=== PATIENT | male | born 1970 | race Caucasian/White ===

== ENCOUNTER 2020-04-29 13:26 | Inpatient (IN) ==
[2020-04-29] MEDS ORDERED: Thiamine 100 MG/ML 2 ml VIAL 100 MG, Folic Acid 1 MG, Multiple Vitamin IV ADULT 10 ML i... IV ONE (13:58)
[2020-04-29] MEDS ORDERED: LORazepam 2 mg VIAL 1 ml IV PUSH ONE ×2 (14:04→15:07)
[2020-04-29] MEDS ORDERED: Lorazepam PYXIS KEY PRN ×2 (14:04→15:07)
[2020-04-29] MEDS ORDERED: Lorazepam PYXIS KEY ONE (14:31)
[2020-04-29 15:12] LABS: ABS Lymphocytes 1.7 10^3/ul (1.0-4.8); ABS Monocytes 0.8 10^3/ul (0-0.8); ABS Neutrophils 4.4 10^3/ul (1.5-7.7); Eosinophil % 0.1 %; Hematocrit 47 % (42-52); Hemoglobin 16.4 g/dL (14.0-18.0); Lymphocyte % 24.2 %; Mean Corpuscular HGB Conc 35 g/dL (31-36); Mean Corpuscular Hemoglobin 33 pg (27-31); Mean Corpuscular Volume 93 fL (80-94); Mean Platelet Volume 7.9 fL (7.4-10.4); Nucleated Red Blood Cells % 0.1; Platelet Count 158 10^3/uL (150-450); Red Blood Count 5.03 10^6 /uL (4.18-5.48); Red Cell Distribution Width 13 % (10-15); White Blood Count 6.9 10^3/uL (3.5-10.8)
[2020-04-29] MEDS ORDERED: NS 0.9% 1000 ml BAG 1,000 ML IV ONE (15:16)
[2020-04-29 16:28] LABS: Calcium 8.5 mg/dL (8.6-10.3); Magnesium 2.2 mg/dL (1.9-2.7); Potassium 3.3 mmol/L (3.5-5.0); Total Bilirubin 0.9 mg/dL (0.2-1.0)
[2020-04-29 16:34] LABS: Albumin/Globulin Ratio 1.7 (1-3); BUN/Creatinine Ratio 13.3 (8-20); EGFR African American 133.9 (>60); EGFR Non-African American 110.7 (>60); Globulin 2.3 g/dL (2-4); Total Protein 6.3 g/dL (6.4-8.9)
[2020-04-29] MEDS ORDERED: Diltiazem IV push/loading dose 5 MG/ML 5 ML vial (25 mg) IV SLOW PU ONE (16:35)
[2020-04-29] MEDS ORDERED: Ondansetron 4 mg VIAL 2 MG/ML 2 ml VIAL IV PRN (16:50)
[2020-04-29] MEDS ORDERED: Potassium Chlor 20 meq TAB.ER PO ONE (17:10)
[2020-04-29] MEDS ORDERED: Diltiazem (ADVAN VIAL) 100 MG/100 ML ADDV.BAG IV SCH (18:00)
[2020-04-29] MEDS: NS 0.9% 1000 ml BAG 1,000 ML IV SCH (20:14)
[2020-04-29] MEDS: Multivitamins/Minerals TAB PO SCH (20:21)
[2020-04-30] MEDS: LORazepam 2 mg VIAL 1 ml IV PUSH SCH (00:22)
[2020-04-30 08:20] LABS: BUN/Creatinine Ratio 14.3 (8-20); Calcium 7.9 mg/dL (8.6-10.3); EGFR African American 98.4 (>60); EGFR Non-African American 81.3 (>60); Potassium 3.8 mmol/L (3.5-5.0)
[2020-04-30 08:22] LABS: ABS Lymphocytes 1.3 10^3/ul (1.0-4.8); ABS Monocytes 0.8 10^3/ul (0-0.8); ABS Neutrophils 3.2 10^3/ul (1.5-7.7); Eosinophil % 0.7 %; Hematocrit 44 % (42-52); Hemoglobin 14.8 g/dL (14.0-18.0); Lymphocyte % 24.6 %; Mean Corpuscular HGB Conc 34 g/dL (31-36); Mean Corpuscular Hemoglobin 33 pg (27-31); Mean Corpuscular Volume 96 fL (80-94); Mean Platelet Volume 8.5 fL (7.4-10.4); Nucleated Red Blood Cells % 0.2; Platelet Count 127 10^3/uL (150-450); Red Blood Count 4.54 10^6 /uL (4.18-5.48); Red Cell Distribution Width 13 % (10-15); White Blood Count 5.3 10^3/uL (3.5-10.8)
[2020-04-30] MEDS: NS 0.9% 1000 ml BAG 1,000 ML IV SCH (10:00)
[2020-04-30] MEDS: GARLIC 2000 MG PO SCH (10:11)
[2020-04-30] MEDS: ASCORBIC ACID 100 MG PO SCH (10:11)
[2020-04-30] MEDS: Multivitamins/Minerals TAB PO SCH (10:14)
[2020-04-30] MEDS: Cholecalciferol (VIT D3) 400 units TAB PO SCH (10:14)
[2020-05-01] MEDS: LORazepam 2 mg VIAL 1 ml IV PUSH SCH (00:07)
[2020-05-01] MEDS: NS 0.9% 1000 ml BAG 1,000 ML IV SCH (00:16)
[2020-05-01 01:04] LABS: Urine Appearance Clear; Urine Bilirubin Negative (Negative); Urine Blood Negative (Negative); Urine Color Straw; Urine Glucose Negative (Negative); Urine Ketones Negative (Negative); Urine Nitrite Negative (Negative); Urine Protein Negative (Negative); Urine Specific Gravity 1.008 (1.010-1.030); Urine Urobilinogen Negative (Negative)
[2020-05-01] MEDS: Cholecalciferol (VIT D3) 400 units TAB PO SCH (09:11)
[2020-05-01] MEDS: ASCORBIC ACID 100 MG PO SCH (09:13)
[2020-05-01] MEDS: GARLIC 2000 MG PO SCH (09:13)
[2020-05-01 09:23] VITALS: BP 139/89
== END 2020-05-01 09:51 | disposition home or self-care (01) | DRG 775 ==
LOC: ED 13:26 → MEDTELE 16:50
PROVIDERS: ADMIT Internal Medicine; ATTEND Internal Medicine